=== PATIENT | female | born 1995 | race Caucasian/White ===

== ENCOUNTER 2017-01-03 13:46 | Emergency (ER) | payer BC ==
[2017-01-03 15:00] LABS: Manual Entry Verification AS; UR Preg Internal Control QC Line Present; UR Preg Kit Lot# 6090065
[2017-01-03 15:03] LABS: Urine Bilirubin Negative (Negative); Urine Glucose Negative (Negative); Urine Nitrite Negative (Negative)
[2017-01-03 15:55] LABS: Hematocrit 42 % (35-47); Mean Corpuscular HGB Conc 33 g/dl (31-36); Mean Corpuscular Hemoglobin 30 pg (27-31); Mean Corpuscular Volume 89 fL (80-97); Mean Platelet Volume 9 um3 (7.4-10.4); Red Blood Count 4.75 10^6/ul (4.0-5.4); Red Cell Distribution Width 12 % (10.5-15)
[2017-01-03 16:10] LABS: Albumin 4.1 g/dL (3.2-5.2); BUN/Creatinine Ratio 16.7 (8-20); Calcium 9.5 mg/dL (8.6-10.3); EGFR African American 132.8 (>60); EGFR Non-African American 103.3 (>60); Potassium 3.8 mmol/L (3.5-5.0); Total Bilirubin 0.5 mg/dL (0.2-1.0); Total Protein 7.1 g/dL (6.4-8.9)
[2017-01-03 16:54] VITALS: BP 99/69
--- NOTE | 2017-01-03 18:53 | RAD ---
HISTORY: Pain, COMPARISONS: None TECHNIQUE: Multiple transverse and longitudinal ultrasound images were obtained of the pelvis using grayscale and color Doppler imaging using the endovaginal transducer. FINDINGS: UTERUS: The uterus is normal in shape, size, contour, and echotexture. GESTATION: A gestational sac is identified.. The mean sac diameter measures 0.84 cm for a gestational age of 5 weeks and 3 days. The TESFAYE is September 02, 2017. cardiac motion is detected. Gross movement is not identified. anatomy cannot be assessed secondary to early dates. The amniotic fluid is qualitatively normal. There are no retroplacental fluid collections. CUL-DE-SAC: There is no free fluid within the cul-de-sac. RIGHT OVARY: The right ovary measures 3.2 x 1.2 x 3.3 cm. LEFT OVARY: The left ovary measures 2.6 x 2.8 x 1.6 cm. BLADDER: The bladder is not well visualized. IMPRESSION: A GESTATIONAL SAC IS IDENTIFIED WITHOUT POLE MEASURING 5 WEEKS AND 3 DAYS GESTATIONAL AGE BY MEAN SAC DIAMETER. THE DIFFERENTIAL INCLUDES EARLY OR ANEMBRYONIC . RECOMMEND CORRELATION WITH SERIAL BETA-HCG LEVELS AND FOLLOW-UP IMAGING
--- NOTE | 2017-01-04 14:17 | ED ---
Branden Steiner Alfonso, scribed for Keny Gil MD on 01/03/17 at 1514 . Abdominal Pain/Female - HPI Summary HPI Summary: This patient is a 21 year old F [facility] [place] by male with a chief complaint of lower abdominal pain since 2 weeks ago. The CC is described as cramping which has gradually became worse. Pt reports between 3-7 weeks . P: 0 A: 1. LNMP November 22. Pt was taking BCP until 11 days ago. Pt rates the pain 10/10 in severity. Symptoms aggravated and alleviated by nothing. Pt reports low back pain. Pt denies vaginal bleeding. - History of Current Complaint Chief Complaint: EDAbdPain Stated Complaint: ,BAD CRAMPS Time Seen by Provider: 01/03/17 15:00 Hx Obtained From: Patient ?: Yes Onset/Duration: Gradual Onset, Lasting Weeks - 2, Worse Since Timing: Constant Severity Initially: Severe Severity Currently: Severe Pain Intensity: 10 Pain Scale Used: 0-10 Numeric Location: Other - Lower abd Character: Cramping Aggravating Factor(s): Nothing Alleviating Factor(s): Nothing Associated Signs and Symptoms: Positive: Other: - Positive low back pain. Negative: Vaginal Bleeding Allergies/Adverse Reactions: Allergies Allergy/AdvReac Type Severity Reaction Status Date / Time No Known Allergies Allergy Unverified 01/05/14 09:53 PMH/Surg Hx/FS Hx/Imm Hx Opthamlomology History: Denies: Hx Legally Blind EENT History: Denies: Hx Deafness Infectious Disease History: No Infectious Disease History: Denies: Traveled Outside the [place] in Last 30 Days - Family History Known Family History: Positive: Cardiac Disease, Hypertension, Diabetes - Social History Alcohol Use: Rare Hx Substance Use: Yes Substance Use Type: Reports: Cocaine - approximately 3-4 months ago Hx Tobacco Use: Yes Smoking Status (MU): Former Smoker Review of Systems Negative: Fever Positive: Abdominal Pain - lower abd cramping while 3-7 weeks Positive: other - Negative vaginal bleeding Positive: Arthralgia - Positive low back pain All Other Systems Reviewed And Are Negative: Yes Physical Exam Triage Information Reviewed: Yes Vital Signs On Initial Exam: Initial Vitals Temp Pulse Resp BP Pulse Ox 97.8 F 85 17 127/64 99 01/03/17 13:56 01/03/17 13:56 01/03/17 13:56 01/03/17 13:56 01/03/17 13:56 Vital Signs Reviewed: Yes Appearance: Positive: Well-Appearing, No Pain Distress, Obese Skin: Positive: Warm, Skin Color Reflects Adequate Perfusion, Dry Head/Face: Positive: Normal Head/Face Inspection Eyes: Positive: Normal ENT: Positive: Normal ENT inspection Neck: Positive: Supple, Nontender Respiratory/Lung Sounds: Positive: Clear to Auscultation, Breath Sounds Present Cardiovascular: Positive: RRR Abdomen Description: Positive: Other: - Mild suprapubic tenderness Bowel Sounds: Positive: Present Musculoskeletal: Positive: Normal Neurological: Positive: Normal, Sensory/Motor Intact, Alert, Oriented to Person Place, Time, CN Intact II-III Psychiatric: Positive: Affect/Mood Appropriate Diagnostics - Vital Signs Vital Signs Temp Pulse Resp BP Pulse Ox 01/03/17 14:00 97.7 F 90 17 127/64 99 01/03/17 13:56 97.8 F 85 17 127/64 99 - Laboratory Lab Results: Lab Results 01/03/17 Range/Units 14:05 Urine Color Yellow Urine Appearance Cloudy Urine pH 6.0 (5-9) Ur Specific Rosalie 1.016 (1.010-1.030) Urine Protein Negative (Negative) Urine Ketones Negative (Negative) Urine Blood Negative (Negative) Urine Nitrate Negative (Negative) Urine Bilirubin Negative (Negative) Urine Urobilinogen Negative (Negative) Ur Leukocyte Esterase Negative (Negative) Urine Glucose Negative (Negative) Urine Ascorbic Acid Not Reportable Urine Test Positive H (Negative) Result Diagrams: 01/03/17 15:44 01/03/17 15:44 Lab Statement: Any lab studies that have been ordered have been reviewed, and results considered in the medical decision making process. - Additional Comments Diagnostic Additional Comments: Transvaginal US : A GESTATIONAL SAC IS IDENTIFIED WITHOUT POLE MEASURING 5 WEEKS AND 3 DAYS GESTATIONAL AGE BY MEAN SAC DIAMETER. THE DIFFERENTIAL INCLUDES EARLY OR ANEMBRYONIC . RECOMMEND CORRELATION WITH SERIAL BETA-HCG LEVELS AND FOLLOW-UP IMAGING Abdominal Pain Fem Course/Dx - Course Course Of Treatment: Ms. Mackenzie presented with suprapubic cramping and a positiver test. Her HCG was 8K and therefore an U/S was obtained that showed an early IUP. She will need F/U. - Diagnoses Provider Diagnoses: Intrauterine Discharge - Discharge Plan Condition: Stable Disposition: HOME Patient Education Materials: Threatened Miscarriage (ED) Referrals: Dr. Salomón Mcnair MD [Other] Additional Instructions: Follow up with OBGYN in 1 week. The documentation as recorded by the Branden gilbert Alfonso accurately reflects the service I personally performed and the decisions made by me, Keny Gil MD.
== END 2017-01-03 19:29 | disposition home or self-care (01) ==
LOC: ED 13:46
DX: Z34.90 Encounter for supervision of normal pregnancy, unspecified, unspecified trimester (principal); M54.5 Low back pain; R10.9 Unspecified abdominal pain; Z87.891 Personal history of nicotine dependence
CPT/HCPCS: 36415; 76817; 80053; 81003; 81025; 84702; 85025; 86850; 86900; 86901; 99282

== ENCOUNTER 2017-08-30 11:12 | Emergency (ER) | payer BC ==
[2017-08-30] MEDS ORDERED: NS 0.9% 1000 ML* 1,000 ML IV ONE (11:41)
[2017-08-30 11:59] LABS: ABS Basophils 0 10^3/ul (0-0.2); ABS Eosinophils 0.1 10^3/ul (0-0.6); ABS Lymphocytes 1.2 10^3/ul (1.0-4.8); ABS Monocytes 0.7 10^3/ul (0-0.8); ABS Neutrophils 6.4 10^3/ul (1.5-7.7); ABS Nucleated RBC 0 10^3/ul; Eosinophil % 1.3 % (0-6); Hematocrit 36 % (35-47); Hemoglobin 12.6 g/dl (12.0-16.0); Lymphocyte % 14.5 % (25-47); Mean Corpuscular HGB Conc 35 g/dl (31-36); Mean Corpuscular Hemoglobin 29 pg (27-31); Mean Corpuscular Volume 84 fL (80-97); Mean Platelet Volume 8 um3 (7.4-10.4); Nucleated Red Blood Cells % 0; Platelet Count 241 10^3/ul (150-450); Red Blood Count 4.29 10^6/ul (4.0-5.4); Red Cell Distribution Width 13 % (10.5-15); White Blood Count 8.5 10^3/ul (3.5-10.8)
[2017-08-30] MEDS ORDERED: Metoclopramide IV* 5 MG/ML 2 ML VIAL IV SLOW PU ONE (12:07)
--- NOTE | 2017-08-30 12:08 | ED ---
Complex/Multi-Sys Presentation - HPI Summary HPI Summary: 22 female presents to ED after being suggested by OB to go to the ER with complaints of sinus/nasal congestion, pressure, headache, nausea and vomiting that began yesterday and has been ongoing since. Denies diarrhea. LBM 2 days ago. No blood in vomit. States has diffuse abdominal pain intermittently, associated with vomiting mainly. Does have dry heaves. Has had total of approximately 8 episodes of vomiting over the past 2 days. States she tried to take tylenol around 9:20am however vomited about 5 minutes after taking it. Has been unable to keep anything down. No chest pain, coughing or trouble breathing. Admits to a lot of head pressure and congestion. Admits to sore throat, swollen tonsils and body aches. She is 15 weeks so has not taken any medication. other than above noted symptoms no others, denied vaginal bleeding, discharge, or urinary complaints. . Patient had 1 miscarriage at 6 weeks back in December 2016. Just recently followed up with OBGYN without any abnormal findings or complications with . PMHx significant for diverticulosis. No other medications or complaints. Denies fever/chills. - History Of Current Complaint Chief Complaint: EDGeneral Time Seen by Provider: 08/30/17 11:32 Hx Obtained From: Patient Onset/Duration: Sudden Onset, Lasting Days - 2, Still Present Timing: Constant, Intermittent, Lasting: Severity Currently: Moderate Severity Initially: Moderate Location: Pain At: - sinuses, headache, throat, abdomen with vomiting Character: Throbbing, Pressure Aggravating Factor(s): none Alleviating Factor(s): none Associated Signs And Symptoms: Positive: Headache, Nausea, Vomiting, Other - congestion/upper respiratory symptoms - Allergies/Home Medications Allergies/Adverse Reactions: Allergies Allergy/AdvReac Type Severity Reaction Status Date / Time No Known Allergies Allergy Unverified 08/30/17 11:24 PMH/Surg Hx/FS Hx/Imm Hx Endocrine/Hematology History: Denies: Hx Diabetes Cardiovascular History: Denies: Hx Hypertension Respiratory History: Denies: Hx Asthma GI History: Reports: Hx Diverticulosis Sensory History: Denies: Hx Legally Blind, Hx Deafness Opthamlomology History: Denies: Hx Legally Blind - Surgical History Surgery Procedure, Year, and Place: n/a - Immunization History Date of Influenza Vaccine: did not have, has been around co workers diagnosed with Immunizations Up to Date: Yes Infectious Disease History: No Infectious Disease History: Denies: Traveled Outside the [place] in Last 30 Days - Family History Known Family History: Positive: Cardiac Disease, Hypertension, Diabetes - Social History Alcohol Use: None Hx Substance Use: Yes Substance Use Type: Reports: None Substance Use Comment - Amount & Last Used: approximately 3-4 months ago Hx Tobacco Use: Yes Smoking Status (MU): Never Smoked Tobacco Review of Systems Constitutional: Negative Positive: Sore Throat, Ear Ache, Nasal Discharge, Other - sinus pressure/ congestion Cardiovascular: Negative Respiratory: Negative Positive: Abdominal Pain, Vomiting, Nausea Genitourinary: Negative Positive: Myalgia Positive: Headache All Other Systems Reviewed And Are Negative: Yes Physical Exam Triage Information Reviewed: Yes Vital Signs On Initial Exam: Initial Vitals Temp Pulse Resp BP Pulse Ox 98.3 F 91 17 123/61 98 08/30/17 11:17 08/30/17 11:17 08/30/17 11:17 08/30/17 11:17 08/30/17 11:17 Vital Signs Reviewed: Yes Appearance: Positive: Well-Appearing, No Pain Distress, Well-Nourished Skin: Positive: Warm, Skin Color Reflects Adequate Perfusion, Dry. Negative: Cold, Numb, Cyanosis @, Jaundiced, Pale, Erythema @ Head/Face: Positive: Normal Head/Face Inspection Eyes: Positive: Conjunctiva Clear ENT: Positive: Pharyngeal erythema, Nasal congestion, TMs normal, Uvula midline - ariway patent. Negative: Tonsillar swelling, Tonsillar exudate Dental: Positive: Percussion Tenderness @ - maxillary and frontal bl. Negative : Cervical Lymphadenopathy Neck: Positive: Supple, Nontender Respiratory/Lung Sounds: Positive: Clear to Auscultation, Breath Sounds Present. Negative: Rales, Rhonchi, Wheezes Cardiovascular: Positive: Normal, RRR, Pulses are Symmetrical in both Upper and Lower Extremities. Negative: Murmur, Rub Abdomen Description: Positive: No Organomegaly, Soft, Other: - TTP left upper and lower abdomen, mild with epigastric and lower abdomen. Negative: Bruit, CVA Tenderness (R), CVA Tenderness (L), Distended, Guarding, McBurney's Point Tenderness Bowel Sounds: Positive: Present Pelvic Exam: Positive: external exam normal - per patient Musculoskeletal: Positive: Normal Neurological: Positive: Normal, Sensory/Motor Intact, Alert, Oriented to Person Place, Time Diagnostics - Vital Signs Vital Signs Temp Pulse Resp BP Pulse Ox 08/30/17 11:36 91 98 08/30/17 11:34 111/62 08/30/17 11:17 98.3 F 91 17 123/61 98 - Laboratory Lab Results: Lab Results 08/30/17 08/30/17 Range/Units 11:40 11:49 WBC 8.5 (3.5-10.8) 10^3/ul RBC 4.29 (4.0-5.4) 10^6/ul Hgb 12.6 (12.0-16.0) g/dl Hct 36 (35-47) % MCV 84 (80-97) fL MCH 29 (27-31) pg MCHC 35 (31-36) g/dl RDW 13 (10.5-15) % Plt Count 241 (150-450) 10^3/ul MPV 8 (7.4-10.4) um3 Neut % (Auto) 76.1 (38-83) % Lymph % (Auto) 14.5 L (25-47) % [place] % (Auto) 7.7 H (0-7) % Eos % (Auto) 1.3 (0-6) % Baso % (Auto) 0.4 (0-2) % Absolute Neuts (auto) 6.4 (1.5-7.7) 10^3/ul Absolute Lymphs (auto) 1.2 (1.0-4.8) 10^3/ul Absolute Monos (auto) 0.7 (0-0.8) 10^3/ul Absolute Eos (auto) 0.1 (0-0.6) 10^3/ul Absolute Basos (auto) 0 (0-0.2) 10^3/ul Absolute Nucleated RBC 0 10^3/ul Nucleated RBC % 0 Influenza A (Rapid) Negative (Negative) Influenza B (Rapid) Negative (Negative) Result Diagrams: 08/30/17 11:49 08/30/17 11:49 Lab Statement: Any lab studies that have been ordered have been reviewed, and results considered in the medical decision making process. Re-Evaluation - Re-Evaluation First Eval Re-Evaluation Time: 13:49 Change: Improved - felt much better after fluids and reglan Complex Multi-Symp Course/Dx Course Of Treatment: labs and urinalysis obtained and unremarkable other than slightly elevated CRP. patient given fluids and reglan. flu and strep obtained and negative. no WBC or signs of infection at this time. obtained US and normal at 150bpm. Normal vitals. Improved after fluids and reglan. Was not in any pain. Was ready to be dc. Updated on labs. No other complaints or concerns at this time. Aware of worsening signs and symptoms to watch out for and return if occur. Follow up with PCP. Given reglan to take at home as needed for nausea , increase fluids, tylenol and saline rinses. Appears to be viral illness/URI at this time and further imaging/work up did not appear necessary at this time. - Diagnoses Differential Diagnoses/HQI/PQRI: Other - gastroenteritis, sinusitis, URI, viral syndrome, nausea/vomiting Provider Diagnoses: Viral syndrome, Sinusitis, Viral gastroenteritis Discharge - Discharge Plan Condition: Stable Disposition: HOME Prescriptions: Metoclopramide TAB* [Reglan TAB*] 5 mg PO Q8H PRN #8 tab PRN Reason: Nausea Patient Education Materials: Gastroenteritis (ED), Acute Nausea and Vomiting ( ED), Viral Syndrome (ED) Referrals: [facility] [facility]IAN REFERRAL [Outside] Additional Instructions: Recommend taking the prescribed medication to help with nausea and prevent vomiting. Increase fluid intake and recommend electrolytes (gatorade/pedialyte). [place] diet when able to eat- bananas, rice, applesauce, toast. Recommend over the counter nasal saline rinses. Antihistamine such as claritin if completely necessary for congestion. Hot showers, warm compresses over sinus and tylenol for headache. Get plenty of rest. Follow up with PCP. Any new or worsening symptoms please seek medical attention promptly.
[2017-08-30 12:16] LABS: EGFR Non-African American 148.9 (>60)
[2017-08-30 12:57] LABS: Urine Appearance Cloudy; Urine Blood Negative (Negative); Urine Color Straw; Urine Ketones Negative (Negative); Urine Protein Negative (Negative); Urine Specific Gravity 1.004 (1.010-1.030); Urine Urobilinogen Negative (Negative)
[2017-08-30] MEDS ORDERED: Acetaminophen TAB* 325 MG PO ONE (13:32)
[2017-08-30 14:11] VITALS: BP 105/53
== END 2017-08-30 14:10 | disposition home or self-care (01) ==
LOC: ED 11:12
DX: B34.9 Viral infection, unspecified (principal); J32.9 Chronic sinusitis, unspecified; A08.4 Viral intestinal infection, unspecified; R51 Headache; R11.2 Nausea with vomiting, unspecified; J02.9 Acute pharyngitis, unspecified; H92.09 Otalgia, unspecified ear; R10.9 Unspecified abdominal pain
CPT/HCPCS: 36415; 80053; 81003; 81015; 83605; 83690; 83735; 84702; 85025; 86140; 87086; 87502; 87651; 96374; 99283; J2765

== ENCOUNTER 2018-02-08 13:29 | Inpatient (IN) | payer BC ==
[2018-02-08] MEDS ORDERED: ceFOXitin 2 GM IVPREMIX* 2 GM/50 ML BAG IVPB ONE (14:17)
--- NOTE | 2018-02-08 14:23 | HP ---
General Information - General Information Maternal Age: 22 Grav: 2 Para: 0 SAB: 1 IEA: 0 Estimated Due Date: 02/20/18 Determined By: Early Ultrasound Maternal Blood Type and Rh: O Positive - Results this Serology/RPR Result: Non-Reactive Rubella Result: Immune HBsAg Result: Negative HIV Result: Negative GBS Culture Result: Negative Past Medical History Pertinent Past Medical History: Non-Contributory Pertinent Past Surgical History: See Records Pertinent Family History: See Records - Antepartal Records Antepartal Records: Reviewed, Complicated by: - breech presentation Review of Systems Constitutional: Uncomfortable CV Complaint: No Respiratory: Shortness of Breath: No Gastrointestinal: No Nausea/Vomiting Genitourinary: Leaking Fluid, No Dysuria, No Bleeding Musculoskeletal: No Complaint Neurological: No Headache Movement: Normal Exam Allergies/Adverse Reactions: Allergies No Known Allergies Allergy (Unverified 08/30/17 11:24) - Abdominal Exam Abdomen Exam: Non-Tender - Ultrasound/Biophysical Profile Ultrasound Status: Bedside Exam Targeted Exam Findings Cervical Exam: 3cm Effacement: 80% Station: -1 Presenting Part: Breech Membrane Status: Leaking Amniotic Fluid Evaluation: Gross Rupture EFM Findings - External Monitor Findings Baseline Heart Rate: 140 External Monitor Findings: Accelerations Present, Variability Moderate Contractions: Mild - q 4-5 ' Assessment/Plan - Obstetrical Risk Factors Obstetrical Risk Factors: Breech - Plan Plan: C/S Delivery - reviewed risks associated with primnary section to include but not limited to infection, bleeding ,damage to internal organs, pain scarring ,need for blood transfusion, need for further surgery.
[2018-02-08 14:36] LABS: ABS Basophils 0 10^3/ul (0-0.2); ABS Eosinophils 0 10^3/ul (0-0.6); ABS Lymphocytes 1.6 10^3/ul (1.0-4.8); ABS Monocytes 0.7 10^3/ul (0-0.8); ABS Neutrophils 7.3 10^3/ul (1.5-7.7); ABS Nucleated RBC 0 10^3/ul; Eosinophil % 0.2 % (0-6); Hematocrit 30 % (35-47); Hemoglobin 10.1 g/dl (12.0-16.0); Lymphocyte % 16.6 % (25-47); Mean Corpuscular HGB Conc 34 g/dl (31-36); Mean Corpuscular Hemoglobin 28 pg (27-31); Mean Corpuscular Volume 80 fL (80-97); Mean Platelet Volume 9.5 um3 (7.4-10.4); Nucleated Red Blood Cells % 0; Platelet Count 206 10^3/ul (150-450); Red Blood Count 3.68 10^6/ul (4.00-5.40); Red Cell Distribution Width 13 % (10.5-15); White Blood Count 9.6 10^3/ul (3.5-10.8)
[2018-02-08] MEDS ORDERED: Sodium Citrate/Citric Acid* 15 ML UDC ONE (15:43)
[2018-02-08] MEDS ORDERED: Bupivacaine-MPF SPINAL* 7.5 MG/ML - 2ML AMP ONE (16:50)
[2018-02-08] MEDS ORDERED: Lidocaine 2% PF * 5 ML VIAL ONE (17:13)
[2018-02-08] MEDS ORDERED: Naloxone* 0.4 MG/ML 1 ML VIAL IV PRN (17:31)
[2018-02-08] MEDS ORDERED: Ondansetron INJ* 2 MG/ML VIAL ONE (17:32)
[2018-02-08] MEDS ORDERED: Ondansetron INJ* 2 MG/ML VIAL IV PRN (17:37)
[2018-02-08] MEDS ORDERED: Acetaminophen TAB* 325 MG PO PRN ×2 (17:37→18:57)
[2018-02-08] MEDS ORDERED: Morphine INJ* 2 MG/ML 1 ML SYRINGE (TWO MG - NEW SYRINGE VERSION) IV PRN (17:37)
[2018-02-08] MEDS ORDERED: oxyCODONE/Acetamin 5/325 MG* TAB PO PRN (17:37)
[2018-02-08] MEDS ORDERED: fentaNYL* 50 MCG/ML 2 ML VIAL (100 MCG VIAL) IV PRN (17:37)
[2018-02-08] MEDS ORDERED: Oxytocin in LR* 20 UNITS/1,000 ML BAG IVPB ONE (18:14)
[2018-02-08] MEDS ORDERED: Witch Hazel PAD* JAR TOPICAL PRN (18:57)
[2018-02-08] MEDS ORDERED: Dibucaine 1% 28.35 GM TUBE PR PRN (18:57)
[2018-02-08] MEDS ORDERED: Glycerin ADULT SUPP PR PRN (18:57)
[2018-02-08] MEDS ORDERED: Oxytocin in LR* 20 UNITS/1,000 ML BAG IVPB SCH (19:00)
[2018-02-08] MEDS: Docusate CAP* 100 MG PO SCH (21:36)
[2018-02-08] MEDS: oxyCODONE/Acetamin 5/325 MG* TAB PO PRN (21:36)
[2018-02-08] MEDS: Simethicone TAB* 80 MG TAB.CHEW PO SCH (21:37)
[2018-02-09] MEDS: Ibuprofen TAB* 600 MG PO PRN ×4 (02:41→21:45)
[2018-02-09] MEDS: oxyCODONE/Acetamin 5/325 MG* TAB PO PRN ×5 (02:42→21:46)
[2018-02-09 07:35] LABS: ABS Basophils 0 10^3/ul (0-0.2); ABS Eosinophils 0 10^3/ul (0-0.6); ABS Lymphocytes 1.9 10^3/ul (1.0-4.8); ABS Monocytes 0.8 10^3/ul (0-0.8); ABS Nucleated RBC 0 10^3/ul; Eosinophil % 0.1 % (0-6); Hematocrit 25 % (35-47); Hemoglobin 8.7 g/dl (12.0-16.0); Lymphocyte % 17.5 % (25-47); Mean Corpuscular HGB Conc 35 g/dl (31-36); Mean Corpuscular Hemoglobin 28 pg (27-31); Mean Corpuscular Volume 80 fL (80-97); Mean Platelet Volume 9.2 um3 (7.4-10.4); Nucleated Red Blood Cells % 0; Platelet Count 159 10^3/ul (150-450); Red Blood Count 3.07 10^6/ul (4.00-5.40); Red Cell Distribution Width 13 % (10.5-15); White Blood Count 10.8 10^3/ul (3.5-10.8)
[2018-02-09] MEDS: Simethicone TAB* 80 MG TAB.CHEW PO SCH ×4 (08:07→20:23)
[2018-02-09] MEDS: Ferrous Gluconate TAB* 324 MG TAB PO SCH ×2 (08:54→20:23)
[2018-02-09] MEDS: Docusate CAP* 100 MG PO SCH ×3 (08:54→20:23)
--- NOTE | 2018-02-09 09:55 | OP ---
OPERATIVE REPORT: DATE OF OPERATION: 02/08/18. DATE OF : [birth year]. SURGEON: Dr. Jennifer Holcomb. SUPERVISOR FLOOR ASSEMBLY: Dr. Ortiz. ANESTHESIA: Spinal. PRE-OP DIAGNOSIS: She is 38 and 2/7 weeks, intrauterine , fred breech , ruptured membranes in active labor. POST-OP DIAGNOSIS: She is 38 and 2/7 weeks, intrauterine , fred breech, ruptured membranes in active labor. Delivered. OPERATIVE PROCEDURE: Primary low transverse section. FLUIDS: 1000 cc of crystalloids. URINE OUTPUT: 300 cc of clear yellow urine. ESTIMATED BLOOD LOSS: 600 cc. FINDINGS: Revealed a breech left sacrum anterior male infant. No nuchal cord. No meconium. Normal uterine cavity without septum or excrescences or any obvious reason for breech presentation. Placenta was manually extracted intact and three vessel cord. So, male infant and the weight was 7 pounds 13 ounces, Apgars were 9 at 1 minute and 9 at 5 minutes. Normal tubes and ovaries bilaterally. COMPLICATIONS: None apparent. DISPOSITION: Stable to recovery room. DESCRIPTION OF PROCEDURE: The patient was placed in dorsal lithotomy position. The abdomen was prepped and draped in a sterile standard fashion. Anesthesia was tested to appropriate level. Using universal protocol, the patient was identified for correct procedure, position and patient. An incision was made 2 fingerbreadths above the pubic symphysis with a scalpel. This was carried through the fascia. The fascia was scored in the midline and the fascial incision was extended laterally and superiorly using Dumont scissors. Fascia was superiorly and inferiorly with blunt sharp dissection. The peritoneum was then entered bluntly and the peritoneal incision was extended bluntly. The bladder blade was inserted. The lower uterine segment was identified, tented up with an Allis. An incision was made with a scalpel and this was carried down through to membranes. The incision was extended laterally and superiorly using bandage scissors. The was delivered, fred breech, left sacrum anterior and the right shoulder was delivered and then left shoulder delivered and head delivered spontaneously. The cord was allowed to pulse and at 60 seconds the cord was clamped and cut and this was handed off to awaiting launderette attendant. Appropriate cord blood was then obtained. Placenta was then manually extracted. Uterus was exteriorized. The uterine cavity was explored and noted to free of any membranes or placental tissues and no defects were noted within the uterine or obvious evidence for cause for breech presentation. Tubes and ovaries were noted to have a normal appearance. The uterine incision itself was reapproximated in 2 layers, first layer running locked 0 Vicryl and the second layer running imbricated 0 Vicryl. The uterus was returned intraabdominally. Colic gutters were lavaged. Hemostasis was assured at the hysterotomy site. Prior to closure of the peritoneum, the sponge , needle and instrument, and blade counts were correct. The peritoneum was clamped with Elizabeth and reapproximated using 3-0 Vicryl. The subfascial area was visualized and noted to be hemostatic and the fascia itself was reapproximated using 0 Vicryl x2 in a running fashion. Subcu was lavaged. Hemostasis was assured with Bovie coagulation and a subcuticular Camper's fascia stitch was placed using 3-0 Vicryl. The skin was then reapproximated in a subcuticular fashion using 4-0 Monocryl, Mastisol and Steris were applied. All sponge, needle, instrument, and blade counts were correct throughout the case. The patient tolerated the procedure well and went to recovery room in a stable condition. [id number]/[facility] #: [id number]
[2018-02-10] MEDS: oxyCODONE/Acetamin 5/325 MG* TAB PO PRN ×4 (04:50→18:42)
[2018-02-10] MEDS: Ibuprofen TAB* 600 MG PO PRN ×3 (04:51→20:37)
[2018-02-10] MEDS: Docusate CAP* 100 MG PO SCH ×3 (09:35→20:37)
[2018-02-10] MEDS: Simethicone TAB* 80 MG TAB.CHEW PO SCH ×4 (09:35→20:37)
[2018-02-10] MEDS: Ferrous Gluconate TAB* 324 MG TAB PO SCH ×2 (09:36→20:38)
[2018-02-11] MEDS: Ibuprofen TAB* 600 MG PO PRN ×2 (05:37→11:34)
[2018-02-11 08:48] VITALS: BP 129/71
[2018-02-11] MEDS: oxyCODONE/Acetamin 5/325 MG* TAB PO PRN (08:55)
[2018-02-11] MEDS: Docusate CAP* 100 MG PO SCH (08:56)
[2018-02-11] MEDS: Ferrous Gluconate TAB* 324 MG TAB PO SCH (08:56)
[2018-02-11] MEDS: Simethicone TAB* 80 MG TAB.CHEW PO SCH ×2 (08:56→11:35)
== END 2018-02-11 12:30 | disposition home or self-care (01) | DRG 540 ==
LOC: MCHOBOUT 13:29 → MCHOB 13:33
PROVIDERS: ADMIT Obstetrics & Gynecology; ATTEND Obstetrics & Gynecology
PROC: 4A1HXCZ Monitoring of Products of Conception, Cardiac Rate, External Approach (ICD-10-PCS; 2018-02-08)
PROC: 10D00Z1 Extraction of Products of Conception, Low, Open Approach (ICD-10-PCS; principal; 2018-02-08 16:58)
DX: O32.1XX0 Maternal care for breech presentation, not applicable or unspecified (principal); Z3A.38 38 weeks gestation of pregnancy; Z37.0 Single live birth; O90.81 Anemia of the puerperium
CPT/HCPCS: 36415; 85025; 86850; 86900; 86901; A9270-GY; J0694; J2405

== ENCOUNTER 2022-09-15 05:04 | Inpatient (IN) ==
[2022-09-15 06:55] LABS: Hematocrit 29 % (35-47); Hemoglobin 10.1 g/dL (12.0-16.0); Mean Corpuscular HGB Conc 35 g/dL (31-36); Mean Corpuscular Hemoglobin 29 pg (27-31); Mean Corpuscular Volume 84 fL (80-97); Mean Platelet Volume 8.5 fL (7.4-10.4); Platelet Count 198 10^3/uL (150-450); Red Blood Count 3.49 10^6 /uL (3.70-4.87); Red Cell Distribution Width 14 % (10-15); White Blood Count 8.7 10^3/uL (3.5-10.8)
[2022-09-15 06:57] LABS: ABS Lymphocytes 1.9 10^3/ul (1.0-4.8); ABS Monocytes 0.7 10^3/ul (0-0.8); ABS Neutrophils 5.9 10^3/ul (1.5-7.7); Eosinophil % 0.5 %; Lymphocyte % 22.4 %
[2022-09-15] MEDS ORDERED: ceFOXitin 2 GM PREMIX 50 ML IVPB ONE (07:00)
[2022-09-15] MEDS ORDERED: Oxytocin 10 UNITS/ML 1 ML VIAL ONE (07:58)
[2022-09-15] MEDS ORDERED: Ondansetron 4 mg VIAL 2 MG/ML 2 ml VIAL ONE (07:59)
[2022-09-15] MEDS ORDERED: Acetaminophen IV 1 GM/100ML 1,000 MG/100 ML BAG IV ONE (07:59)
[2022-09-15] MEDS ORDERED: Phenylephrine IV 10 MG/ML 1 ml VIAL ONE (08:00)
[2022-09-15] MEDS ORDERED: Midazolam 2 mg/2 ml VIAL 1 mg/ml 2 ml VIAL (2 mg) ONE (09:25)
[2022-09-15] MEDS ORDERED: Naloxone 0.4 mg VIAL 0.4 mg/ml 1 ml VIAL IV PRN (09:31)
[2022-09-15 10:42] LABS: Urine Appearance Clear; Urine Bilirubin Negative (Negative); Urine Blood 1+ (Negative); Urine Color Colorless; Urine Glucose Negative (Negative); Urine Ketones 1+ (Negative); Urine Nitrite Negative (Negative); Urine Protein Negative (Negative); Urine Specific Gravity 1.005 (1.002-1.030); Urine Urobilinogen Negative (Negative)
[2022-09-15] MEDS ORDERED: Glycerin ADULT 2.4 gm SUPP PR PRN (10:46)
[2022-09-15] MEDS ORDERED: Witch Hazel PAD JAR TOPICAL PRN (10:46)
[2022-09-15] MEDS ORDERED: Lactated Ringers 1000 ml BAG 1,000 ML IV SCH (11:00)
[2022-09-15 11:08] LABS: Urine Benzodiazepine Screen None Detected (None Detect); Urine Opiates Screen None Detected (None Detect)
[2022-09-15 11:31] LABS: Urine Bacteria Absent (Absent); Urine Red Blood Cell Trace(0-2/hpf) (Absent); Urine White Blood Cell Trace(0-5/hpf) (Absent)
[2022-09-16 06:28] LABS: ABS Neutrophils 7.3 10^3/ul (1.5-7.7); Eosinophil % 0.4 %; Hematocrit 30 % (35-47); Hemoglobin 10.1 g/dL (12.0-16.0); Mean Corpuscular HGB Conc 34 g/dL (31-36); Mean Corpuscular Hemoglobin 29 pg (27-31); Mean Corpuscular Volume 83 fL (80-97); Mean Platelet Volume 8.2 fL (7.4-10.4); Nucleated Red Blood Cells % 0.2; Platelet Count 186 10^3/uL (150-450); Red Blood Count 3.54 10^6 /uL (3.70-4.87); Red Cell Distribution Width 13 % (10-15); White Blood Count 10.4 10^3/uL (3.5-10.8)
[2022-09-17 08:24] VITALS: BP 112/68
== END 2022-09-17 11:54 | disposition home or self-care (01) | DRG 540 ==
LOC: MCHOB 05:04
PROVIDERS: ADMIT Obstetrics & Gynecology; ATTEND Obstetrics & Gynecology